=== PATIENT | female | born 1945 | race Caucasian/White ===

== ENCOUNTER → 2017-12-07 11:52 | Outpatient (CLI) | payer MEDICARE, SELFPAY ==
[2017-12-07 15:53] LABS: Absolute Lymphocyte Count 1.02 X10^3/ul (0.83-4.51); Absolute Neutrophil Count 2.1 X10^3/uL (2.0-7.7); Basophil# 0.02 X10^3/uL; Basophil% 0.5 % (0-1); Eosinophil# 0.02 X10^3/uL; Eosinophils% 0.5 % (0-5); Hematocrit 40.8 % (37-47); Hemoglobin 12.9 g/dl (12.0-15.0); Lymphocyte # 1.02 X10^3/ul (4.0); Lymphocyte % 26.8 % (19-41); Mean Corp Hgb Conc 31.6 g/gl (32-36); Mean Corpuscular Hgb 31.6 pg (27.0-32.0); Mean Platelet Vol. 9.7 fl (6.2-12.0); Monocyte# 0.69 X10^3/uL; Monocyte% 18.1 % (0-10); Neutrophil # 2.05 X10^3/uL (2.7-7.7); Neutrophil % 53.8 % (47-70); Platelet Count 223 K/mm3 (150-450); RBC Distribution Width CV 13.4 % (11.6-14.6); Red Blood Count 4.08 M/mm3 (4.2-5.4); White Blood Count 3.8 K/mm3 (4.4-11.0)
[2017-12-07 15:55] LABS: POSITIVE COUNT NO; POSITIVE DIFFERENTIAL NO; POSITIVE MORPHOLOGY NO
[2017-12-07 16:20] LABS: AST(SGOT) 30 U/L (15-37); Alanine Aminotransfer ALT/SGPT 34 U/L (13-56); Albumin, Serum 3.9 g/dL (3.2-5.0); Alkaline Phosphatase 60 U/L (45-117); Anion Gap 13 (5-15); BUN 11 mg/dL (7-18); BUN/Creat Ratio 18.2 RATIO (10-20); Calcium,Total 9.2 mg/dL (8.5-10.1); Chloride 106 mmol/L (98-107); EST Glomerular Filtration Rate 103 mL/min (>60); Est Glom Filt Rate - Afr Amer 125 mL/min (>60); Globulin 3.8 g/dL (2.2-4.2); Glucose 90 mg/dL (74-106); Potassium 3.9 mmol/L (3.5-5.1); Protein, Total 7.7 g/dL (6.4-8.2); Sodium Level 141 mmol/L (136-145); T4 Free Direct 0.68 ng/dL (0.76-1.46); Thyroid Stim Hormone (TSH) 1.76 uIU/mL (0.358-3.74)
[2017-12-08 08:52] LABS: Vitamin B12 299 pg/mL (211-911)
[2017-12-08 14:22] LABS: ANTINUCLEAR ANTIBODIES DIRECT Negative (Negative)
== END ==
PROVIDERS: Family Provider Family Medicine; PCP Family Medicine; Visit Provider Family Medicine
DX: R53.82 Chronic fatigue, unspecified (principal); I47.1 Supraventricular tachycardia; G47.00 Insomnia, unspecified
CPT/HCPCS: 36415; 80053; 82607; 84439; 84443; 85025; 86038; 86225; 86235

== ENCOUNTER 2018-04-18 08:31 | Day surgery (SDC) | payer MEDICARE, SELFPAY ==
--- NOTE | 2018-04-18 | COL_PTH ---
PATIENT: DAMI FOSTER LOC: EN U#:[id number] AGE/SX: 72/F ROOM: RE04/18/[address]: Dr. Kwame Louise MD : 1945 BED: DIS: 04/18/2018 SPEC #: [id number] RECD: 04/18/18 13:14 STATUS: ALICIA NYASIA #: [id number] NIRMALA: 04/18/18 00:[address]: Kwame Louise DEPT: SURGICAL PATHOLOGY RECD BY: Messi Rojas ENTERED: 04/18/18 13:15 SP TYPE: COLON OTHR DR: Dr. Abhilash Pompa DO Tissues: A - Small intestine biopsy B - Gastric mucous membrane C - COLON BIOPSY D - Transverse colon Procedures: Surgery Specimen Level IV HEADER OPERATION: Colonoscopy, EGD ([facility] [place] PRE[place]OP DIAGNOSIS: Nausea, vomiting, diarrhea, positive colorectal cancer screening Cologuard test TISSUE SUBMITTED: A ? Biopsy of small bowel, B ? Biopsy of antrum for H. pylori and path, C ? Random colon biopsies, D ? Polyp of transverse colon MICROSCOPIC DIAGNOSIS A. Small bowel, biopsy: No pathologic diagnosis. B. Gastric antrum, biopsy: Minimal chronic inflammation. C. Colon, random biopsy: No significant pathologic change. D. Transverse colon polyp, biopsy: Fragments of tubular adenoma. AM:guillermo 04/19/18 COMMENT B. The results of immunohistochemistry for Helicobacter pylori will be reported separately ([id number]). Case has been reviewed in consultation with Dr. Bailon who concurs with the above diagnosis. IDC:ALLAN MICROSCOPIC DESCRIPTION Slides are reviewed. GROSS DESCRIPTION A - Received in fixative is one container labeled with the patient's name and designated biopsy of small bowel. The specimen consists of one irregular fragment of light gomez soft tissue that measures 0.8 x 0.2 x 0.1 cm. The specimen is totally submitted in one cassette. B - Received in fixative is one container labeled with the patient's name and designated biopsy of antrum for H. pylori and path. The specimen consists of one irregular fragment of light gomez soft tissue that measures 0.4 x 0.4 x 0.1 cm. The specimen is totally submitted in one cassette. C - Received in fixative is one container labeled with the patient's name and designated random colon biopsy. The specimen consists of multiple irregular fragments of light gomez soft tissue that in aggregate measure 0.5 x 0.5 x 0.1 cm. The specimen is totally submitted in one cassette. D - Received in fixative is one container labeled with the patient's name and designated polyp of transverse colon. The specimen consists of multiple irregular fragments of light gomez soft tissue that in aggregate measure 0.5 x 0.5 x 0.1 cm. The specimen is totally submitted in one cassette. / SJ:rg 04/18/18 TC:3 CPT: 02893 x4
[2018-04-18 08:52] VITALS: BP 141/75; PULSE 77; RESP 18; TEMP 36.4; O2SAT 99; BMI 21.9
--- NOTE | 2018-04-18 10:00 | IMM_PTH ---
PATIENT: DAMI FOSTER LOC: EN U#:[id number] AGE/SX: 72/F ROOM: RE04/18/[address]: Dr. Kwame Louise MD : 1945 BED: DIS: 04/18/2018 SPEC #: [id number] RECD: 04/18/18 13:36 STATUS: ALICIA REMauricio #: [id number] NIRMALA: 04/18/18 10:[address]: Kwame Louise DEPT: IMMUNOHISTOCHEMISTRY RECD BY: Marli Magana ENTERED: 04/18/18 13:37 SP TYPE: IMMUNO OTHR DR: Dr. Abhilash Pompa DO Tissues: B - Stomach, NOS Procedures: H Pylori (initial) PHYSICIAN & INSTITUTION [place] [id number] SPECIMEN INFORMATION: Tissue Source: B ? Biopsy of antrum Clinical Info: Nausea, vomiting, diarrhea, positive colorectal cancer screen Specimen Number: [id number] CPT code: 15941 METHODOLOGY: Deparaffinized sections of prefer/formalin-fixed tissue or PAP/DQ stained slides are incubated with monoclonal/polyclonal antibodies/oligonucleotide probes. Localization is made via biotin free immunoperoxidase method. Appropriate controls are performed and reacted as expected. Results on target cell population are indicated in the following table: RESULTS: ANTIBODY / CLONE RESULT Block B H Pylori (polyclonal) negative These tests were developed and their performance characteristics determined by [facility]. They may not have been cleared or approved by the U.S. Food and Drug Administration. The FDA has determined that such clearance or approval is not necessary. INTERPRETATION: B. Antrum, biopsy: Negative for Helicobacter pylori organisms. AM:guillermo 04/19/18
[2018-04-18 11:01] VITALS: BP 109/65; BP 141/75; PULSE 77; RESP 22; TEMP 36.8; O2SAT 93
--- NOTE | 2018-04-18 11:02 | PCM.OPRPT ---
Problem List (1) Positive colorectal cancer screening using Cologuard test Status: Acute (2) Nausea with vomiting Status: Acute Qualifiers: Vomiting type: unspecified Vomiting Intractability: unspecified Qualified Code(s): R11.2 - Nausea with vomiting, unspecified Report of Operation Date of Procedure: 04/18/18 Pre-Operative Diagnosis: Positive Holman-Guard test. Nausea vomiting diarrhea Post-Operative Diagnosis: Same Surgery/Procedure Performed:: [id number] esophagogastroduodenoscopy with biopsy. [id number] colonoscopy with snare polypectomy Type of Anesthesia:: MAC Description of Procedure: Patient was brought into the endoscopy suite. Back of her throat was sprayed with Cetacaine spray. Bite-block was placed. She was given graded anesthesia. The scope was inserted into the back of the oropharynx and directed out through the esophagus into the stomach and into the duodenum without difficulty. Operative findings: 1. Duodenum: Normal appearance no mass lesions no ulcerations pylorus was easily traversed through without signs of any stricturing. 2. Stomach: Normal appearance minimal antral gastritis was identified biopsy for H. pylori was obtained.. Retroflexion did show significant hiatal hernia. 3. Esophagus: Normal appearance no mass lesions no signs of esophagitis no signs of a hiatal hernia Z line was at 30 cm cm and looked entirely normal. Diaphragmatic hiatus was at 35 cm. Colonoscope was inserted into the rectum. It was directed through the sigmoid colon, descending colon, transverse colon, ascending colon, to the cecum without difficulty. Operative findings: 1. Cecum: Normal appearance no mass lesions normal ileocecal valve. 2. Ascending colon: Normal appearance no mass lesions. 3. Transverse colon: Polyp was identified and removed with snare cautery technique I used a snare and brought back through the channel the scope without difficulty. 4. Descending colon: Normal appearance no mass lesions 5. Sigmoid colon: Normal appearance no mass lesions 6. Rectum: Normal appearance no mass lesions internal hemorrhoids were identified. Scope was withdrawn digital rectal exam showed no masses within the anus. Patient will need to have another colonoscopy in 1 to 3 years depending on the pathology of the larger polyp which looks like it is going to be a tubulovillous adenoma. If this is the case she will need a 1 year follow-up colonoscopy. - Admit VTE Documentation VTE Present on Admission: No VTE Mechan Device Prophylaxis: None VTE Pharm Prophylaxis ordered?: No Reason prophylaxis not ordered:: Treatment Not Indicated
[2018-04-18 11:05] VITALS: BP 107/61; BP 141/75; PULSE 76; RESP 18; O2SAT 94
[2018-04-18 11:09] VITALS: BP 119/60; BP 141/75; PULSE 75; RESP 18; O2SAT 95
[2018-04-18 11:16] VITALS: BP 121/55; BP 141/75; PULSE 74; RESP 18; TEMP 37.3; O2SAT 94
[2018-04-18 11:53] VITALS: BP 141/75
== END 2018-04-18 11:53 | disposition home or self-care (01) ==
LOC: EN 08:31 → AC 08:33
PROVIDERS: Family Provider Family Medicine; PCP Family Medicine; Visit Provider Surgery
PROC: 0DJD8ZZ Inspection of Lower Intestinal Tract, Via Natural or Artificial Opening Endoscopic (ICD-10-PCS; CPT 45378; principal; 2018-04-18 09:55)
DX: D12.3 Benign neoplasm of transverse colon (principal); K29.50 Unspecified chronic gastritis without bleeding; R11.2 Nausea with vomiting, unspecified; K59.00 Constipation, unspecified; I10 Essential (primary) hypertension; E78.00 Pure hypercholesterolemia, unspecified; M19.90 Unspecified osteoarthritis, unspecified site; Z78.0 Asymptomatic menopausal state; Z79.899 Other long term (current) drug therapy; Z87.891 Personal history of nicotine dependence
CPT/HCPCS: 43239; 45380; 88305; 88342; J7120; J1610

== ENCOUNTER → 2018-08-17 13:12 | Outpatient (CLI) | payer MEDICARE, SELFPAY ==
--- NOTE | 2018-08-17 13:16 | CT_ITS ---
STUDY: CT ABDOMEN AND PELVIS WITH CONTRAST REASON FOR EXAM: Female, 72 years old. Abdominal pain for several months, prescription controlled hypertension RADIATION DOSAGE (If Supplied By Facility): CTDIvol = ( 10.12 ) mGy, DLP = ( 468.70 ) mGycm TECHNIQUE: Transaxial images were obtained from the dome of the diaphragm to the symphysis pubis with oral contrast. 75ml ml of Isovue 300 contrast was administered. Sagittal and coronal images were reconstructed. Individualized dose optimization techniques were used for this CT. COMPARISON: None. FINDINGS: The visualized lung bases are unremarkable. The visualized portions of the heart are within normal limits. Normal liver. Normal gallbladder and extrahepatic biliary system. Normal spleen. Normal pancreas. Normal bilateral adrenal glands. Normal right kidney. Normal left kidney. Normal visualized stomach. Normal small intestine. Normal colon. The appendix is visualized and appears normal. There is scattered atherosclerotic calcification of the abdominal aorta, without a demonstrated aneurysm. Normal inferior vena cava. Normal retroperitoneum. Incompletely distended urinary bladder. Normal visualized uterus. Normal abdominal wall. There are mild facet degenerative changes of the lumbar spine. CT/Abdomen/Pelvis WITH Contrast IMPRESSION: 1. No acute inflammatory process, bowel wall thickening or obstruction. 2. Chronic changes, as above. Electronically Signed: Cleve Bowers MD at 17:17 EST , Service support ,
[2018-08-17 13:31] LABS: CREATININE FINGERSTICK 0.6 mg/dL (0.55-1.02); EGFR FINGERSTICK > 60.0000 mL/min (>60)
== END ==
PROVIDERS: Family Provider Family Medicine; PCP Family Medicine; Referring Provider Family Medicine; Visit Provider Family Medicine
DX: R10.84 Generalized abdominal pain (principal); R11.10 Vomiting, unspecified
CPT/HCPCS: 74177; Q9967

== ENCOUNTER → 2018-09-20 08:08 | Outpatient (CLI) | payer MEDICARE, SELFPAY ==
--- NOTE | 2018-09-20 08:11 | CT_ITS ---
PROCEDURE: CTA ABDOMEN WITH CONTRAST REASON FOR EXAM: Female, 72 years old. Severe abdominal pain. Possible ischemia. RADIATION DOSAGE (If Supplied By Facility): CTDIvol = ( 18.7 ) mGy, DLP = ( 278.8 ) mGycm TECHNIQUE: Transaxial images were obtained from the dome of the diaphragm to the the upper pelvis without oral contrast, and following intravenous injection of 100 cc of Isovue-370. COMPARISON: 08/17/2018 FINDINGS: The visualized lung bases are unremarkable. There is focal eventration of the posterior right hemidiaphragm. The liver is borderline in size to slightly enlarged. There are small calcifications likely due to old granulomatous disease. Normal gallbladder and extrahepatic biliary system. The spleen is unremarkable. Normal pancreas. Normal bilateral adrenal glands. Normal right kidney. Normal left kidney. There is a small hiatal hernia. Normal small intestine. Normal colon. The appendix is visualized and appears normal. There is no demonstrated peritoneal fluid. There is mild atherosclerotic calcification of the abdominal aorta with mild elongation and tortuosity, but without a demonstrated aneurysm. The celiac axis is unremarkable. The superior mesenteric artery is unremarkable. There is mild thickening of the ade of the diaphragm near the origin of the celiac axis and superior mesenteric artery but there is no evidence of compression of the celiac axis or the superior mesenteric artery. The peripheral branches as visualized on this examination appears to be unremarkable. The renal arteries are unremarkable. The inferior mesenteric artery is patent. Normal inferior vena cava. Normal retroperitoneum. Normal abdominal wall. There is no demonstrated destructive bony process. CT/CTA Abdomen W/WO Contrast IMPRESSION: 1. Mild atherosclerotic calcifications and tortuosity of the abdominal aorta without significant stenosis. 2. Patent superior mesenteric artery and celiac axis as described above without significant stenosis. 3. Patent visualized peripheral branches. 4. No demonstrated acute process. Electronically Signed: Carson Villanueva MD at 9:51 EST Tel , Service support ,
== END ==
PROVIDERS: Family Provider Family Medicine; PCP Family Medicine; Referring Provider Family Medicine; Visit Provider Family Medicine
DX: I70.0 Atherosclerosis of aorta (principal); R10.9 Unspecified abdominal pain
CPT/HCPCS: 74175; Q9967

== ENCOUNTER → 2018-10-25 13:07 | Outpatient (CLI) | payer MEDICARE, SELFPAY ==
[2018-10-25 13:10] LABS: Mucous, Urine 0 SEEN /hpf (<or=2+); Red Blood Cells-Urine 0 SEEN /hpf (0-5)
[2018-10-25 17:18] LABS: Color, Urine Yellow (Yellow); Glucose, Dipstick Normal (Normal); Ketone-Dipstick 15 mg/dl (Negative); Leukocyte Esterase-Dipstick 100 /ul (Negative); Nitrite-Dipstick Positive (Negative); Occult Blood-Urine Negative /ul (Negative); Protein-Dipstick Negative (Negative); Urine Bilirubin Dipstick Negative (Negative); Urine Clarity Sl. Cloudy (Clear); Urine Urobilinogen Normal (Normal); Urine pH 6.5 (5.0 - 8.0)
[2018-10-25 17:34] LABS: Bacteria 3+ /hpf (None Seen); Squamous Epithelial Cells - UA 0-5 SEEN /hpf (5-10); White Blood Cells 5-10 SEEN /hpf (0-5)
== END ==
PROVIDERS: Family Provider Family Medicine; PCP Family Medicine; Visit Provider Family Medicine
DX: R30.0 Dysuria (principal)
CPT/HCPCS: 81001; 87086; 87088; 87186

== ENCOUNTER → 2020-12-14 09:21 | Outpatient (CLI) | payer MEDICARE, SELFPAY ==
[2020-12-14 12:17] LABS: Color, Urine Yellow (Yellow); Glucose, Dipstick Normal (Normal); Ketone-Dipstick 5 mg/dl (Negative); Leukocyte Esterase-Dipstick 100 /ul (Negative); Nitrite-Dipstick Positive (Negative); Occult Blood-Urine 10 /ul (Negative); Protein-Dipstick 15 mg/dl (Negative); Specific Gravity, Urine 1.015 (1.002-1.030); Urine Bilirubin Dipstick Negative (Negative); Urine Clarity Sl. Cloudy (Clear); Urine Urobilinogen Normal (Normal)
[2020-12-14 12:20] LABS: Absolute Lymphocyte Count 1.29 X10^3/uL (0.83-4.51); Absolute Neutrophil Count 1.8 X10^3/uL (2.0-7.7); Basophil# 0.05 X10^3/uL; Basophil% 1.2 % (0-1); Eosinophil# 0.08 X10^3/uL; Hematocrit 40.2 % (37-47); Lymphocyte # 1.29 X10^3/ul (0.83-4.51); Lymphocyte % 32.2 % (19-41); Mean Corp Hgb Conc 32.3 g/dL (32-36); Mean Corpuscular Hgb 32.4 pg (27.0-32.0); Mean Corpuscular Volume 100.2 fL (81-99); Mean Platelet Vol. 9.4 fl (6.2-12.0); Monocyte# 0.79 X10^3/uL; Monocyte% 19.7 % (0-10); NRBC Flagged by Analyzer 0 % (0-5); Neutrophil # 1.79 X10^3/uL (2.7-7.7); Neutrophil % 44.7 % (47-70); Platelet Count 223 K/mm3 (150-450); RBC Distribution Width CV 12.5 % (11.6-14.6); RBC Distribution Width SD 46.4 fl (35.1-43.9); Red Blood Count 4.01 M/mm3 (4.2-5.4)
[2020-12-14 12:41] LABS: Vitamin B12 838 pg/mL (211-911); Vitamin D,25 Hydroxy 10.4 ng/mL
[2020-12-14 12:46] LABS: ALB/GLOB Ratio 1.1 RATIO (0.9-2.4); AST(SGOT) 25 U/L (15-37); Alanine Aminotransfer ALT/SGPT 26 U/L (13-56); Albumin, Serum 3.8 g/dL (3.2-5.0); Alkaline Phosphatase 57 U/L (45-117); Anion Gap 9 (5-15); BUN 10 mg/dL (7-18); Chloride 103 mmol/L (98-107); Cholesterol 242 mg/dL (200); Creatinine, Serum 0.62 mg/dL (0.55-1.02); EST Glomerular Filtration Rate 99 mL/min (>60); Est Glom Filt Rate - Afr Amer 119 mL/min (>60); Globulin 3.5 g/dL (2.2-4.2); Glucose 86 mg/dL (74-106); High Density Lipoprotein 108 mg/dL; Potassium 3.6 mmol/L (3.5-5.1); Protein, Total 7.3 g/dL (6.4-8.2); Sodium Level 137 mmol/L (136-145); T4 Free Direct 0.74 ng/dL (0.76-1.46); Thyroid Stim Hormone (TSH) 3.82 uIU/mL (0.358-3.74); Triglycerides 87 mg/dL; Very Low Density Lipoprotein 17 mg/dL (5-40)
== END ==
PROVIDERS: PCP Family Medicine; Referring Provider Family Medicine; Visit Provider Family Medicine
DX: Z00.00 Encounter for general adult medical examination without abnormal findings (principal); I47.1 Supraventricular tachycardia; I10 Essential (primary) hypertension; R53.82 Chronic fatigue, unspecified; E53.8 Deficiency of other specified B group vitamins; E55.9 Vitamin D deficiency, unspecified
CPT/HCPCS: 36415; 80053; 80061; 81002; 82306; 82607; 84439; 84443; 85025

== ENCOUNTER → 2021-03-17 11:29 | Outpatient (CLI) | payer MEDICARE, SELFPAY ==
[2021-03-17 11:36] LABS: Bacteria 0 SEEN /hpf (None Seen); Mucous, Urine 0 SEEN /hpf (<or=2+); Red Blood Cells-Urine 0 SEEN /hpf (0-5); Squamous Epithelial Cells - UA 0 SEEN /hpf (5-10); White Blood Cells 0 SEEN /hpf (0-5)
[2021-03-17 15:41] LABS: Color, Urine Yellow (Yellow); Glucose, Dipstick Normal (Normal); Ketone-Dipstick Negative (Negative); Leukocyte Esterase-Dipstick Negative /ul (Negative); Nitrite-Dipstick Negative (Negative); Occult Blood-Urine Negative /ul (Negative); Protein-Dipstick Negative (Negative); Urine Bilirubin Dipstick Negative (Negative); Urine Clarity Clear (Clear); Urine Urobilinogen Normal (Normal)
== END ==
PROVIDERS: PCP Family Medicine; Referring Provider Family Medicine; Visit Provider Family Medicine
DX: N39.0 Urinary tract infection, site not specified (principal); E55.9 Vitamin D deficiency, unspecified
CPT/HCPCS: 36415; 81001; 82306; 87077; 87086; 87088; 87186

== ENCOUNTER → 2021-12-21 | Outpatient (CLI) | payer MEDICARE, SELFPAY | END | disposition home or self-care (01) | PROVIDERS: PCP Family Medicine; Referring Provider Family Medicine; Visit Provider Family Medicine | DX: R82.90 Unspecified abnormal findings in urine (principal) | CPT/HCPCS: 87077; 87086; 87088; 87186 ==

== ENCOUNTER 2022-04-12 14:34 | Emergency (ER) | payer MEDICARE, SELFPAY ==
[2022-04-12 14:35] VITALS: BP 199/81; PULSE 90; RESP 18; TEMP 36.6; O2SAT 98; BMI 23.4
--- NOTE | 2022-04-12 15:02 | EDS_ITS ---
HPI History of Present Illness Chief Complaint: Headache Onset/Context/Timing Current Severity: Mild Narrative Narrative: 76-year-old female with significant past medical history of hypertension here with headache that started prior to arrival. The patient states she developed headache that she locates behind the right eye that started at approximately 5 AM, 10 hours prior to arrival. Headache is improved since onset. She describes the pain as sharp, constant. Denies any associated blurry vision, loss of vision, falls, trauma, neck stiffness, fever, slurred speech, difficulty ambulating incoordination. No recent sick contacts no one sick in the home. She states there is alarming to her because she has not had a similar headache in the past. Notes she took her home atenolol last night. Notes she has not missed any doses of her home antihypertensive. Old chart reviewed: No recent ED visits, no recent advanced imaging of the brain Prior similar symptoms: No PFSH PFSH Medical History (Updated 04/12/22 @ 18:[address] Deuce Barrientos DO) Abdominal pain Arthritis Constipation Diarrhea Family hx of colon cancer Fatigue Hypertension Nausea Home Medications atenolol 25 mg tablet 12.5 mg PO QDAY 04/03/18 [History Last Taken 04/18/18] lorazepam 0.5 mg tablet 0.5 mg PO QHS PRN Sleep 04/03/18 [History Last Taken Unknown] L.acidoph, paracasei,B. lactis 10 billion cell capsule 1 ea PO DAILY 04/12/18 [History Last Taken Unknown] ibuprofen 200 mg capsule 200 mg PO PRN PRN Pain 04/12/18 [History Last Taken Unknown] Allergy/AdvReac Type Severity Reaction Status Date / Time codeine AdvReac Nausea Verified 04/12/22 14:38 doxycycline AdvReac Nausea/Vom/ Verified 04/12/22 14:38 Diarrhea erythromycin base AdvReac Nausea Verified 04/12/22 14:38 meperidine [From Demerol] AdvReac Nausea/Vom/ Verified 04/12/22 14:38 Diarrhea Family History Mother Colon cancer Hypertension Sister Hypertension Surgical History (Updated 04/18/18 @ 11:[address] Kwame Luoise MD) Hx of colonoscopy Social History (Updated 04/27/18 @ 07:[address] Kwame Louise MD) Smoking Status: Former smoker second hand exposure: No alcohol intake: current alcohol intake frequency: a few times a month Alcohol type: wine substance use type: does not use caffeine: No what type of physical activity do you participate in: walking frequency: 1-2 times per week seatbelt use: always ROS ROS ED Eyes Eyes: Denies other visual disturbances ENT ENT ED: Denies ear pain Cardiovascular Cardiovascular: Denies chest pain Respiratory/Chest Respiratory/Chest: Denies dyspnea Gastrointestinal Gastrointestinal: Denies abdominal pain Genitourinary Genitourinary ED: Denies dysuria Musculoskeletal Musculoskeletal: Denies joint pain Integumentary Denies rash Neurologic Neurologic: Reports headache(s); Denies dizziness, focal weakness, numbness, syncope or weakness Psychiatric Psychiatric: Denies homicidal ideation or suicidal ideation EXAM Physical Exam Const Vital Signs: 04/12/22 14:35 04/12/22 16:20 04/12/22 17:52 Temperature 97.9 F Temperature Source Temporal Pulse Rate 90 79 90 Respiratory Rate 18 16 16 Blood Pressure 199/81 H 174/78 H 172/90 H Blood Pressure Mean 120 110 117 Pulse Ox 98 97 98 Oxygen Delivery Method Room Air Room Air Room Air 04/12/22 18:40 Temperature Temperature Source Pulse Rate 88 Respiratory Rate 16 Blood Pressure 180/95 H Blood Pressure Mean Pulse Ox 99 Oxygen Delivery Method HEENT HEENT Narrative: Slight tenderness over the right temporal artery no obvious trauma Eyes PERRL Neck no lymphadenopathy GI Palpation: soft Neuro oriented x3 and CN's II-XII intact bilaterally Neuro Narrative: Alert and oriented x3, neuro exam at baseline, cranial nerves II through XII are intact. No pain with extraocular muscle movement. There is negative test of skew. Normal speech. 5 of 5 strength in upper and lower extremities in flexion extension. Intact sensation to light touch in upper and lower extremity dermatomes. No truncal or extremity ataxia. No dysdiadochokinesia. Normal gait. 2+ reflexes. No meningeal signs. Negative Babinski. NIH of 0 Sensorium / Orientation: alert Motor Exam: strength 5/5 throughout; Negative for general weakness Psych mental status grossly normal MDM MDM MDM Narrative Medical decision making narrative: 76-year-old female presents with new onset headache some associated nausea. Exam without focal neurologic deficits, NIH 0, however there was some temporal artery tenderness. I pursued labs including ESR, CBC, BMP. Obtained a CT scan to rule out mass, bleed or other intracranial abnormality. Labs images were remarkable for no evidence of intracranial abnormality including mass or bleed. No evidence of systemic inflammation to suggest temporal arteritis. Patient is likely suffering from a primary headache. Low suspicion for acute life- threatening headache. Patient noted improvement with Reglan, Tylenol and fluids. She is appropriate for discharge home with close PCP follow-up. Lab Data Attestation: I reviewed the patient's lab results. Labs: Laboratory Results - last 24 hr 04/12/22 04/12/22 15:34 15:34 WBC 6.1 RBC 3.97 L Hgb 13.0 Hct 38.8 MCV 97.7 MCH 32.7 H MCHC 33.5 RDW Std Deviation 44.2 H RDW Coeff of Alejo 12.2 Plt Count 223 MPV 9.3 Immature Gran % (Auto) 0.300 Neut % (Auto) 71.0 H Lymph % (Auto) 16.7 L Faulkner % (Auto) 11.5 H Eos % (Auto) 0.2 Baso % (Auto) 0.3 Absolute Neuts (auto) 4.3 Absolute Lymphs (auto) 1.02 Nucleated RBC % 0 ESR 19 Sodium 134 L Potassium 3.9 Chloride 100 Carbon Dioxide 23.0 Anion Gap 11 BUN 11 Creatinine 0.55 Estim Creat Clear Calc 33.84 Est GFR (MDRD) Af Amer 137 Est GFR (MDRD) Non-Af 114 BUN/Creatinine Ratio 20.0 Glucose 91 Calcium 9.2 C-React Prot Ext Range < 2.90 Radiography Diagnostic Testing: Clinical Impression(s) from Imaging Studies Brain CT 04/12/22 15:18 IMPRESSION: No acute intracranial finding. Electronically Signed: Lauro Christina MD at 16:52 EDT , Treatment and Re-Evaluation Narrative: SheOn reevaluation the patient's neurologic exam remained nonfocal Discharge Plan Triage Chief Complaint: Headache ED Provider: Deuce Barrientos Dx/Rx/DC Orders Clinical Impression: Headache Instructions: ED Headache Unspecified Prescriptions: No Action atenolol 25 mg tablet 12.5 mg PO QDAY lorazepam 0.5 mg tablet 0.5 mg PO QHS PRN (Reason: Sleep) ibuprofen 200 MG capsule 200 mg PO PRN PRN (Reason: Pain) Alokacidcelina celesteB. lactis 1 EACH capsule 1 ea PO DAILY Primary Care Provider: Abhilash Pompa Referrals: Abhilash Pompa, [Primary Care Provider] - Activity Restrictions/Additional Instructions: Please take [id number] Tylenol and ibuprofen as needed for further headache control. Disposition Disposition: Home, Self Care
--- NOTE | 2022-04-12 15:18 | CT_ITS ---
STUDY: CT BRAIN WITHOUT CONTRAST REASON FOR EXAM: Female, 76 years old. headache r/o mass, ICH RADIATION DOSAGE (If Supplied By Facility): CTDIvol = ( 44.99 ) mGy, DLP = ( 745.49 ) mGycm TECHNIQUE: Transaxial CT imaging of the brain was performed without administration of intravenous contrast material. Individualized dose optimization techniques were used for this CT. COMPARISON: No relevant priors. FINDINGS: There is no intra-/extra-axial fluid collection, mass effect, or midline shift. The leigh/white matter junction is preserved. Hypoattenuation of periventricular and subcortical white matter suggestive of chronic small vessel ischemic disease. Mild diffuse parenchymal volume loss is noted. There is vascular calcification. The basal cisterns are patent. Polyps versus retention cysts are seen in the bilateral maxillary sinuses. The calvarium is intact. CT/Brain/Head without Contrast IMPRESSION: No acute intracranial finding. Electronically Signed: Lauro Christina MD at 16:52 EDT ,
[2022-04-12 15:44] LABS: Absolute Lymphocyte Count 1.02 X10^3/uL (0.83-4.51); Absolute Neutrophil Count 4.3 X10^3/uL (2.0-7.7); Basophil# 0.02 X10^3/uL; Basophil% 0.3 % (0-1); Eosinophil# 0.01 X10^3/uL; Eosinophils% 0.2 % (0-5); Hematocrit 38.8 % (37-47); Lymphocyte # 1.02 X10^3/ul (0.83-4.51); Lymphocyte % 16.7 % (19-41); Mean Corp Hgb Conc 33.5 g/dL (32-36); Mean Corpuscular Hgb 32.7 pg (27.0-32.0); Mean Corpuscular Volume 97.7 fL (81-99); Mean Platelet Vol. 9.3 fl (6.2-12.0); Monocyte% 11.5 % (0-10); NRBC Flagged by Analyzer 0 % (0-5); Neutrophil # 4.32 X10^3/uL (2.7-7.7); Platelet Count 223 K/mm3 (150-450); RBC Distribution Width CV 12.2 % (11.6-14.6); RBC Distribution Width SD 44.2 fl (35.1-43.9); Red Blood Count 3.97 M/mm3 (4.2-5.4); White Blood Count 6.1 K/mm3 (4.4-11.0)
[2022-04-12] MEDS: Acetaminophen 325 MG Tablet PO (15:47)
[2022-04-12] MEDS: 0.9% Normal Saline 1,000 ML 999 ML IV (15:47)
[2022-04-12 16:10] LABS: Anion Gap 11 (5-15); BUN 11 mg/dL (7-18); CRP < 2.90 mg/L (0.0-3.0); Calcium,Total 9.2 mg/dL (8.5-10.1); Chloride 100 mmol/L (98-107); Creatinine, Serum 0.55 mg/dL (0.55-1.02); EST Glomerular Filtration Rate 114 mL/min (>60); Est Glom Filt Rate - Afr Amer 137 mL/min (>60); Estimated Creatinine Clearance 33.84 ml/min; Glucose 91 mg/dL (74-106); Potassium 3.9 mmol/L (3.5-5.1); Sodium Level 134 mmol/L (136-145)
[2022-04-12 16:20] VITALS: BP 174/78; PULSE 79; RESP 16; O2SAT 97
[2022-04-12 16:51] LABS: Erythrocyte Sedimentation Rate 19 mm/hr (0-30)
[2022-04-12 17:52] VITALS: BP 172/90; PULSE 90; RESP 16; O2SAT 98
[2022-04-12 18:40] VITALS: BP 180/95; PULSE 88; RESP 16; O2SAT 99
== END 2022-04-12 18:42 | disposition home or self-care (01) ==
PROVIDERS: Emergency Provider Emergency Medicine; PCP Family Medicine; Visit Provider Emergency Medicine
DX: R51.9 Headache, unspecified (principal); Z87.891 Personal history of nicotine dependence
CPT/HCPCS: 70450; 80048; 85025; 85652; 86140; 96360; 99282; J7030; A4216

== ENCOUNTER → 2022-04-27 | Outpatient (CLI) | payer MEDICARE, SELFPAY ==
--- NOTE | 2022-04-27 11:45 | MRI_ITS ---
STUDY: MRI BRAIN WITHOUT CONTRAST REASON FOR EXAM: Female, 76 years old. VISUAL HALLUCINATIONS TECHNIQUE: Standardized multiplanar fat and water weighted pulse sequences were obtained. COMPARISON: Head CT dated April 12, 2022 FINDINGS: There is mild cerebral atrophy with widening of the extra-axial spaces and ventricular dilatation. There are multiple white matter hyperintensities, distributed throughout the deep white matter tracts of the cerebral hemispheres, consistent with moderate chronic white matter ischemic changes. There is no evidence for recent intracranial ischemia or other cause of cytotoxic edema on diffusion weighted imaging (DWI). Normal T2* images of the brain without demonstrated susceptibility artifact. There is no demonstrated hemosiderin stain. Normal bilateral basal ganglia. Normal thalami. There is no extra-axial fluid accumulation. Normal flow voids within the major intracranial circulation suggesting patency by spin echo criteria. Normal sella turcica, pituitary gland, infundibular stalk, optic chiasm and hypothalamus. Normal tectal plate and pineal gland. Normal midbrain, daniel and medulla. Normal cerebellum. Normal basal cisterns. Normal bilateral temporal bones. Normal bilateral internal auditory canals. No demonstrated orbital abnormality, within the constraints of a routine brain study. Normal visualized paranasal sinuses. Normal calvarium and skull base. Normal visualized soft tissue structures. Normal visualized upper cervical spine. MRI/Brain without Contrast IMPRESSION: 1. Chronic ischemic and involutional changes of the brain, as described above. Electronically Signed: Yang Briones MD at 14:53 EDT ,
== END | disposition home or self-care (01) ==
PROVIDERS: PCP Family Medicine; Referring Provider Ophthalmology; Visit Provider Ophthalmology
DX: R44.1 Visual hallucinations (principal)
CPT/HCPCS: 70551

== ENCOUNTER → 2022-06-28 | Outpatient (CLI) | payer MEDICARE, SELFPAY ==
[2022-06-28 14:36] LABS: Color, Urine Yellow (Yellow); Glucose, Dipstick Normal (Normal); Ketone-Dipstick 15 mg/dl (Negative); Leukocyte Esterase-Dipstick 500 /ul (Negative); Nitrite-Dipstick Negative (Negative); Occult Blood-Urine Negative /ul (Negative); Protein-Dipstick Negative (Negative); Urine Bilirubin Dipstick Negative (Negative); Urine Clarity Clear (Clear); Urine Urobilinogen Normal (Normal)
[2022-06-28 15:00] LABS: Vitamin D,25 Hydroxy 48.2 ng/mL
== END | disposition home or self-care (01) ==
LOC: BFHLAB 13:26
PROVIDERS: PCP Family Medicine; Visit Provider Family Medicine
DX: R53.82 Chronic fatigue, unspecified (principal); E55.9 Vitamin D deficiency, unspecified; N39.0 Urinary tract infection, site not specified
CPT/HCPCS: 36415; 81002; 82306; 84443; 87077; 87086; 87088; 87186

== ENCOUNTER → 2022-12-27 | Outpatient (CLI) | payer MEDICARE, SELFPAY ==
[2022-12-27 15:57] LABS: Color, Urine Yellow (Yellow); Glucose, Dipstick Normal (Normal); Ketone-Dipstick 5 mg/dl (Negative); Leukocyte Esterase-Dipstick 500 /ul (Negative); Nitrite-Dipstick Positive (Negative); Occult Blood-Urine 10 /ul (Negative); Protein-Dipstick Negative (Negative); Specific Gravity, Urine 1.015 (1.002-1.030); Urine Bilirubin Dipstick Negative (Negative); Urine Clarity Sl. Cloudy (Clear); Urine Urobilinogen Normal (Normal)
== END | disposition home or self-care (01) ==
LOC: LABSPEC 13:43
PROVIDERS: PCP Family Medicine; Referring Provider Family Medicine; Visit Provider Family Medicine
DX: N39.0 Urinary tract infection, site not specified (principal)
CPT/HCPCS: 81002; 87077; 87086; 87088; 87186

== ENCOUNTER → 2023-07-04 | Outpatient (CLI) | payer MEDICARE, SELFPAY ==
[2023-07-04 12:23] LABS: Absolute Lymphocyte Count 1.43 X10^3/uL (0.83-4.51); Absolute Neutrophil Count 7.7 X10^3/uL (2.0-7.7); Basophil# 0.05 X10^3/uL; Basophil% 0.5 % (0-1); Eosinophil# 0.14 X10^3/uL; Eosinophils% 1.3 % (0-5); Hematocrit 36.6 % (37-47); Hemoglobin 12.1 g/dL (12.0-15.0); Lymphocyte # 1.43 X10^3/ul (0.83-4.51); Lymphocyte % 13.2 % (19-41); Mean Corp Hgb Conc 33.1 g/dL (32-36); Mean Corpuscular Hgb 32.3 pg (27.0-32.0); Mean Corpuscular Volume 97.6 fL (81-99); Mean Platelet Vol. 9.7 fl (6.2-12.0); Monocyte# 1.47 X10^3/uL; Monocyte% 13.6 % (0-10); NRBC Flagged by Analyzer 0 % (0-5); Platelet Count 305 K/mm3 (150-450); RBC Distribution Width CV 12.2 % (11.6-14.6); RBC Distribution Width SD 43.8 fl (35.1-43.9); Red Blood Count 3.75 M/mm3 (4.2-5.4); White Blood Count 10.8 K/mm3 (4.4-11.0)
[2023-07-04 12:59] LABS: Vitamin D,25 Hydroxy 53.8 ng/mL
[2023-07-04 13:00] LABS: ALB/GLOB Ratio 0.9 RATIO (0.9-2.4); AST(SGOT) 17 U/L (15-37); Alanine Aminotransfer ALT/SGPT 20 U/L (13-56); Albumin, Serum 3.4 g/dL (3.2-5.0); Alkaline Phosphatase 62 U/L (45-117); Anion Gap 10 (5-15); BUN 10 mg/dL (7-18); Calcium,Total 8.8 mg/dL (8.5-10.1); Chloride 102 mmol/L (98-107); Cholesterol 154 mg/dL (200); Creatinine, Serum 0.63 mg/dL (0.55-1.02); EST Glomerular Filtration Rate 98 mL/min (>60); Est Glom Filt Rate - Afr Amer 118 mL/min (>60); Globulin 3.8 g/dL (2.2-4.2); Glucose 85 mg/dL (74-106); High Density Lipoprotein 70 mg/dL; Potassium 3.3 mmol/L (3.5-5.1); Protein, Total 7.2 g/dL (6.4-8.2); Sodium Level 137 mmol/L (136-145); Thyroid Stim Hormone (TSH) 2.29 uIU/mL (0.358-3.74); Triglycerides 101 mg/dL; Very Low Density Lipoprotein 20 mg/dL (5-40)
[2023-07-04 16:04] LABS: Color, Urine Yellow (Yellow); Glucose, Dipstick Normal (Normal); Ketone-Dipstick 15 mg/dl (Negative); Leukocyte Esterase-Dipstick 500 /ul (Negative); Nitrite-Dipstick Positive (Negative); Occult Blood-Urine 10 /ul (Negative); Protein-Dipstick 15 mg/dl (Negative); Specific Gravity, Urine 1.015 (1.002-1.030); Urine Bilirubin Dipstick Negative (Negative); Urine Clarity Sl. Cloudy (Clear); Urine Urobilinogen Normal (Normal)
== END | disposition home or self-care (01) ==
LOC: MTLAB 09:30
PROVIDERS: PCP Family Medicine; Referring Provider Family Medicine; Visit Provider Family Medicine
DX: I10 Essential (primary) hypertension (principal); D72.819 Decreased white blood cell count, unspecified; E55.9 Vitamin D deficiency, unspecified; N39.0 Urinary tract infection, site not specified
CPT/HCPCS: 36415; 80053; 80061; 81002; 82306; 84443; 85025; 87077; 87086; 87088; 87186

== ENCOUNTER → 2023-11-16 | Outpatient (CLI) | payer MEDICARE, SELFPAY ==
[2023-11-16 17:37] LABS: Absolute Lymphocyte Count 1.44 X10^3/uL (0.83-4.51); Absolute Neutrophil Count 2.8 X10^3/uL (2.0-7.7); Basophil# 0.03 X10^3/uL; Basophil% 0.6 % (0-1); Eosinophil# 0.04 X10^3/uL; Eosinophils% 0.8 % (0-5); Hematocrit 39.1 % (37-47); Hemoglobin 12.6 g/dL (12.0-15.0); Lymphocyte # 1.44 X10^3/ul (0.83-4.51); Lymphocyte % 28.2 % (19-41); Mean Corp Hgb Conc 32.2 g/dL (32-36); Mean Corpuscular Hgb 31.2 pg (27.0-32.0); Mean Corpuscular Volume 96.8 fL (81-99); Monocyte# 0.78 X10^3/uL; Monocyte% 15.3 % (0-10); NRBC Flagged by Analyzer 0 % (0-5); Neutrophil # 2.81 X10^3/uL (2.7-7.7); Neutrophil % 54.9 % (47-70); Platelet Count 255 K/mm3 (150-450); RBC Distribution Width CV 12.8 % (11.6-14.6); RBC Distribution Width SD 45.9 fl (35.1-43.9); Red Blood Count 4.04 M/mm3 (4.2-5.4); White Blood Count 5.1 K/mm3 (4.4-11.0)
[2023-11-16 18:13] LABS: ALB/GLOB Ratio 1.1 RATIO (0.9-2.4); AST(SGOT) 25 U/L (15-37); Alanine Aminotransfer ALT/SGPT 25 U/L (13-56); Alkaline Phosphatase 53 U/L (45-117); Anion Gap 12 (5-15); BUN 9 mg/dL (7-18); BUN/Creat Ratio 14.5 RATIO (10-20); Calcium,Total 9.8 mg/dL (8.5-10.1); Chloride 104 mmol/L (98-107); Creatinine, Serum 0.62 mg/dL (0.55-1.02); EST Glomerular Filtration Rate 99 mL/min (>60); Est Glom Filt Rate - Afr Amer 120 mL/min (>60); Globulin 3.7 g/dL (2.2-4.2); Glucose 86 mg/dL (74-106); Magnesium 2.3 mg/dL (1.6-2.6); Potassium 3.7 mmol/L (3.5-5.1); Protein, Total 7.7 g/dL (6.4-8.2); Sodium Level 138 mmol/L (136-145)
== END | disposition home or self-care (01) ==
LOC: BFHLAB 14:18
PROVIDERS: PCP Family Medicine; Visit Provider Family Medicine
DX: I47.10 Supraventricular tachycardia, unspecified (principal)
CPT/HCPCS: 36415; 80053; 83735; 85025

== ENCOUNTER → 2023-12-01 | Outpatient (CLI) | payer MEDICARE, SELFPAY | END | disposition home or self-care (01) | LOC: PSN 11:49 | PROVIDERS: PCP Family Medicine; Referring Provider Family Medicine; Visit Provider Family Medicine | DX: R00.2 Palpitations (principal) | CPT/HCPCS: 93225; 93226 ==

== ENCOUNTER → 2025-01-08 | Outpatient (CLI) | payer MEDICARE, SELFPAY ==
[2025-01-08 15:31] LABS: Absolute Lymphocyte Count 1.53 X10^3/uL (0.83-4.51); Absolute Neutrophil Count 2.8 X10^3/uL (2.0-7.7); Basophil# 0.03 X10^3/uL; Basophil% 0.6 % (0-1); Eosinophil# 0.07 X10^3/uL; Eosinophils% 1.3 % (0-5); Hemoglobin 12.3 g/dL (12.0-15.0); Lymphocyte # 1.53 X10^3/ul (0.83-4.51); Mean Corp Hgb Conc 33.2 g/dL (32-36); Mean Corpuscular Hgb 32.5 pg (27.0-32.0); Mean Corpuscular Volume 97.6 fL (81-99); Mean Platelet Vol. 9.9 fl (6.2-12.0); Monocyte# 0.78 X10^3/uL; Monocyte% 14.8 % (0-10); NRBC Flagged by Analyzer 0 % (0-5); Neutrophil # 2.84 X10^3/uL (2.7-7.7); Neutrophil % 53.7 % (47-70); Platelet Count 246 K/mm3 (150-450); RBC Distribution Width CV 12.6 % (11.6-14.6); RBC Distribution Width SD 45.1 fl (35.1-43.9); Red Blood Count 3.79 M/mm3 (4.2-5.4); White Blood Count 5.3 K/mm3 (4.4-11.0)
[2025-01-08 16:32] LABS: ALB/GLOB Ratio 1.4 RATIO (0.9-2.4); AST(SGOT) 22 U/L (<=31); Alanine Aminotransfer ALT/SGPT 14 U/L (<=34); Albumin, Serum 4.3 g/dL (3.4-4.8); Alkaline Phosphatase 55 U/L (35-104); Anion Gap 14 (5-15); BUN 11 mg/dL (4-19); BUN/Creat Ratio 17.3 RATIO (10-20); Calcium,Total 9.8 mg/dL (7.6-11.0); Carbon Dioxide 23.6 mmol/L (21.0-32.0); Chloride 100 mmol/L (98-108); Creatinine, Serum 0.61 mg/dL (0.70-1.20); EST Glomerular Filtration Rate 90 (>60); Glucose 99 mg/dL (70-99); Potassium 3.9 mmol/L (3.3-5.1); Protein, Total 7.4 g/dL (5.9-8.4); Sodium Level 137 mmol/L (133-145); Total Bilirubin 0.35 mg/dL (0.00-1.30)
== END | disposition home or self-care (01) ==
LOC: MTLAB 13:33
PROVIDERS: PCP Family Medicine; Referring Provider Family Medicine; Visit Provider Family Medicine
DX: I10 Essential (primary) hypertension (principal)
CPT/HCPCS: 36415; 80053; 85025